=== PATIENT | female | born 1985 | race Caucasian/White ===

== ENCOUNTER 2017-03-26 12:24 | Observation (INO) | payer OTHER ==
[~2017-03-26] VITALS: Ht 177.8 cm; Wt 127.3 kg
--- NOTE | 2017-03-26 15:03 | DIAGNOSTIC IMAGING REPORT ---
PROCEDURE: CT LOWER EXT W/CONTRAST-RIGHT INDICATION: ABCESS TECHNIQUE: 125 ml Isovue 300 IV and axial scans with coronal and sagittal re-formations through the right thigh. COMPARISON: None. FINDINGS: There is infiltration of the subcutaneous fat lateral to the right hip extending inferiorly to the knee but no evidence of an abscess or fluid collection. Vessels and bones are unremarkable. Normal appendix. Uterus, adnexa and bladder are unremarkable. No pelvic mass or fluid collection. IMPRESSION: 1. Cellulitis lateral to the right hip but no evidence of an abscess 2. Results discussed with Dr. Taylor
--- NOTE | 2017-03-26 16:31 | ED ORDER SUMMARY ---
..... Patient: DENISE VANG OrderSheet [facility] VisitID: [id number] [address] [place] [address] 31y, F Registration Date/Time: 03/26/2017 ORDER SHEET Weight: 127.0 kg (stated) Allergies: Sulfa Antibiotics GENERAL ORDERS: - (CT with contrast, bilateral lower extremity abscesses to the thighs) (13:03/26/2017 Vero Myers) (Cancelled: Wrong Order13:27 oerner) CBC w Diff Urgent (13:03/26/2017 Vero Myers) (Ack 13:28 LAURAoehemalathaner) (13:31 LWhalen R.N.) CMP Urgent (13:03/26/2017 Vero Myers) (Ack 13:28 LAURAoerner) (13:31 LWhalen R.N.) Lactate, Serum Urgent (13:03/26/2017 Vero Myers) (Ack 13:28 LAURAoerner) (13:31 LWhalen R.N.) Urine Drug Screen Urgent (13:24 03/26/2017 Vero Myers) (Ack 13:28 LAURAoerner) (13:46 LWhalen R.N.) Urine Urgent (13:03/26/2017 Vero Myers) (Ack 13:28 LAURAoeleonila) (13:46 LWhalen R.N.) Pulse oximeter (13:03/26/2017 Vero Myers) (13:31 LWhalen R.N.) CT Lower Extremity With Contrast - Left Urgent (13:03/26/2017 LAURAoerleonarda verbal order read back to Vero Myers) (Ack 13:28 LAURAoehemalathaner) (13:31 LWhalen R.N.) CT Lower Extremity With Contrast - Right Urgent (13:03/26/2017 LAURAoerleonarda verbal order read back to Vero Myers) (Ack 13:28 LAURAoehemalathaner) (13:31 LWhaldeng R.N.) POC Glucose (17:26 03/26/2017 Vero Myers) (17:34 Juan Pablo R.N.) Blood Culture (Yes) (N/A) Urgent (19:20 03/26/2017 Vero Myers) (Ack 19:29 AMcQuoid ER Tech1) (19:31 Chalo R.N.) Culture, Wound Surface (Leg) (purulent) Urgent (19:22 03/26/2017 Vero Myers) (Ack 19:29 AMcQuoid ER Tech1) (19:38 Chalo R.N.) TSH Urgent (19:03/26/2017 Vero Myers) (Ack 19:29 AMcQuoid ER Tech1) (19:31 Chalo R.N.) MEDICATION ORDERS: Doxycycline Hyclate PO 100 mg (NOW) (16:27 03/26/2017 Vero Myers) (16:31 LWhaldeng R.N.) Ativan IM 2 mg (HIGH ALERT MEDICATION, NOW) (17:26 03/26/2017 Vero Myers) (17:34 Juan Pablo R.N.) Ativan IM 2 mg (HIGH ALERT MEDICATION, NOW) (17:42 03/26/2017 Vero Myers) (17:49 Juan Pablo R.N.) IV FLUIDS: IV NS : initial bolus 1000 mL (1000 mL/hr), then none - for X1 (NOW) (13:22 03/26/2017 Vero Myers) (13:46 LWhaldeng R.N.) Morphine IV 8 mg (HIGH ALERT MEDICATION, NOW) (13:23 03/26/2017 Vero Myers) (13:47 LWhalen R.N.) Morphine IV 8 mg (HIGH ALERT MEDICATION, NOW) (16:26 03/26/2017 Vero Myers) (16:31 LWhaldeng R.N.) IV NS : initial bolus 1000 mL (1000 mL/hr), then none - for X1 (NOW) (17:26 03/26/2017 Vero Myers) (Ack 18:21 LWhalen R.N.) (18:38 LWhalen R.N.) Dilaudid IV 1 mg (HIGH ALERT MEDICATION, NOW) (18:18 03/26/2017 Vero Myers) (Ack 18:21 LWhalen R.N.) (18:37 LWhalen R.N.) Vancomycin IV 1.5 gm/500 mL (NOW) (19:22 03/26/2017 Vero Myers) (Ack 19:32 Chalo R.N.) (20:42 Chalo R.N.) ORDER SHEET NOTES: [Electronically signed by Cammie Lombardi R.N. (22:57 03/26/2017)] [Electronically signed by Ramon Taylor Dr. (13:05 03/27/2017)] [Electronically locked/signed by Cammie Lombardi R.N. (22:57 03/26/2017)]
--- NOTE | 2017-03-26 16:31 | ED CLINICAL REPORT ---
Clinical Report - Physicians/Mid Levels [facility] [address] [place] [address] 03/26/2017 12:26 Patient: DENISE VANG Time Seen: 1319. Arrived- By private vehicle. Historian- patient. HISTORY OF PRESENT ILLNESS Chief Complaint: LESION. This started past month and is still present and worsening. It was gradual in onset and has been constant but is not gone now. It is described as painful. It has been located on the right lower extremity and left lower extremity. A possible cause has been identified (drug injection). (reports she does heroin. States that she would like to stop doing heroin.). Similar symptoms previously: Many times. Recent medical care: Not recently seen/assessed. REVIEW OF SYSTEMS No fever, chills or difficulty breathing. All systems otherwise negative, except as recorded above. PAST HISTORY See nurses notes. Tetanus immunization status is up-to-date. SOCIAL HISTORY Never smoker. History of drug use. No alcohol use. No recent travel. Is a local resident. PHYSICAL EXAM Appearance: Alert. Oriented X3. No acute distress. (cooperative, pleasant, polite). Eyes: Pupils equal, round and reactive to light. Conjunctivae and eyelids normal. ENT: Ears normal. Nose normal. Pharynx normal. CVS: Normal heart rate and rhythm. Heart sounds normal. Respiratory: No respiratory distress. Breath sounds normal. Chest nontender. Abdomen: Nontender. No organomegaly. Skin: (chronic lesions in multiple stages of healing noted to the lateral aspect of the thighs bilaterally. lateral aspect of the thighs or indurated however there is no area of fluctuance noted on examination. Overlying area of erythema noted bilaterally. No signs of lymphangitis. No crepitus. No active drainage. No foreign bodies. Compartments are soft. Patient is neurovascular intact distally.). Extremities: Normal external inspection. Extremities nontender. Neuro: Oriented X 3. No motor deficit. No sensory deficit. LABS, X-RAYS, AND EKG Note - Special Studies: PROCEDURE: CT LOWER EXT W/CONTRAST-LEFT INDICATION: ABCESS TECHNIQUE: 125 ml IV with axial scans through the left thigh with coronal and sagittal re-formations. COMPARISON: None. FINDINGS: There is infiltration of the subcutaneous fat lateral to the left hip extending to the knee. There is a 3 x 0.9 cm subcutaneous low density area anterolateral to the proximal (series 3, image 54), without well defined morillo, which could represent a phlegmon. Bones and muscles are unremarkable. Normal appendix, uterus, adnexa and bladder. No pelvic mass or fluid collection. IMPRESSION: 1. Cellulitis of the subcutaneous tissues lateral to the left hip 2. 3 x 0.9 cm subcutaneous phlegmon in the upper left thigh anterolaterally PROCEDURE: CT LOWER EXT W/CONTRAST-RIGHT INDICATION: ABCESS TECHNIQUE: 125 ml Isovue 300 IV and axial scans with coronal and sagittal re-formations through the right thigh. COMPARISON: None. FINDINGS: There is infiltration of the subcutaneous fat lateral to the right hip extending inferiorly to the knee but no evidence of an abscess or fluid collection. Vessels and bones are unremarkable. Normal appendix. Uterus, adnexa and bladder are unremarkable. No pelvic mass or fluid collection. IMPRESSION: 1. Cellulitis lateral to the right hip but no evidence of an abscess. Laboratory Tests: Urine: (SUKI: 03/26/2017 13:50) ( [facility] 03/26/2017 14:16) Final results Test Result Flag Units (Reference) URINE NEGATIVE CBC w Diff: (SUKI: 03/26/2017 13:15) ( [facility] 03/26/2017 14:19) Final results Test Result Flag Units (Reference) WHITE BLOOD COUNT 7.1 K/uL (4.5-11.5) RED BLOOD COUNT 4.23 M/uL (4.00-5.20) HEMOGLOBIN 9.1 L gm/dL (12.0-16.0) HEMATOCRIT 28.4 L % (36.0-46.0) MEAN CELL VOLUME 67 L fL (80-100) MEAN CORPUSCULAR HGB 22 L pg (26-34) MEAN CORPUSCULAR HGB CONC 32 g/dL (31-37) RED CELL DISTRIBUTION WIDTH 16.8 H % (11.6-14.8) PLATELET COUNT 426 H K/uL (150-400) NEUTROPHIL % 55.8 % (50-75) LYMPH % 31.4 % (25-40) MONO % 8.3 % (3-14) EOSINOPHIL % 4.2 H % (0-4) BASOPHIL % 0.3 % (0-2) RBC MORPHOLOGY 1+ STOMATOCYTOSIS~~2+ MICROCYTOSIS~~2+ ANISOCYTOSIS~~3+ HYPOCHROMASIA Urine Drug Screen: (SUKI: 03/26/2017 13:50) ( [facility] 03/26/2017 14:34) Final results Test Result Flag Units (Reference) AMPHETAMINE/METHAMPHETAMINE POSITIVE H (NEGATIVE) BARBITURATE NEGATIVE (NEGATIVE) BENZODIAZEPINE POSITIVE H (NEGATIVE) CANNABINOID NEGATIVE (NEGATIVE) COCAINE NEGATIVE (NEGATIVE) ECSTASY POSITIVE H (NEGATIVE) METHADONE NEGATIVE (NEGATIVE) OPIATE POSITIVE H (NEGATIVE) The urine drug screen is a qualitative screening test fordrug overdose and abuse. All screen results should beconsidered as presumptive.Drugs screened for are as follows:BenzodiazepinesCocaineAmphetamines/MetamphetaminesTHC (Tetrahydrocannabinol)OpiatesBarbituratesEcstasyMethadonePositive results are unconfirmed. For confirmation, notifythe lab for the specimen to be sent to the reference lab.All confirmations must be performed by a differentmethodology.The ingestion of natural herbal and plant productscontaining Ephedra/Ephedra metabolites can produce in urineone or more substances capable of cross reacting withamphetamine/methamphetamine immunoassays. These testsprovide a preliminary result only. A more specificalternative chemical method must be used to obtain aconfirmed analytical result. Lactate, Serum: (SUKI: 03/26/2017 13:15) ( [facility] 03/26/2017 14:12) Final results Test Result Flag Units (Reference) LACTIC ACID 0.8 mmol/L (0.4-2.0) CMP: (SUKI: 03/26/2017 13:15) ( [facility] 03/26/2017 13:45) Final results Test Result Flag Units (Reference) GLUCOSE 108 mg/dL (70-110) BUN 11 mg/dL (7-18) CREATININE 0.7 mg/dL (0.6-1.3) Estimated GFR >60 mL/min Estimated GFR- >60 mL/min Note: Persistent reduction over 3 months in eGFR<60 mL/min/1.73 m2 defines CKD. Patients with eGFR values>=60 mL/min/1.73 m2 may also have CKD if evidence ofpersistent proteinuria. Additional information may be foundat www.kidney.org. SODIUM 138 mmol/L (136-145) POTASSIUM 3.8 mmol/L (3.5-5.1) CHLORIDE 101 mmol/L (98-107) CARBON DIOXIDE 28 mmol/L (21-32) CALCIUM 8.4 L mg/dL (8.5-10.1) TOTAL PROTEIN 8.6 H g/dL (6.4-8.2) ALBUMIN 2.9 L g/dL (3.3-5.0) BILIRUBIN, TOTAL 0.2 mg/dL (0.0-1.0) ALKALINE PHOSPHATASE 101 U/L (46-116) AST (SGOT) 19 U/L (15-37) ALT (SGPT) 18 U/L (12-78) . PROGRESS AND PROCEDURES Course of Care: the patient is a pleasant 31-year-old female with past medical history significant for IV drug abuse presenting for evaluation of infection to the lateral aspect of the thighs. There is a large area of induration noted bilaterally to the patient's thighs. No identifiable area of fluctuance noted. Because the large area of induration and area of involvement, would be concerned for large subcutaneous abscess. No crepitus. No signs of gangrene. Patient will be evaluated with a CT scan of the lower extremities with contrast. Patient is agreeable to the treatment plan. No evidence of sepsis at this time. Pain medication has been ordered. Did have a discussion with the patient and her pain control and the negative effects of heroin on the Pain receptors in the brain. the patient's work up was a markable for the findings above. White count is noted to be 7.1. Initially, the patient's CT scan did not show any signs of fluid collection. Because of this, patient did not need an incision and drainage as there was no area of fluid collection noted. Patient was readied for discharge. Patient was feeling better. Antibiotics have been ordered. First dose was provided here in the emergency department. Just prior to discussion with the patient in regards to discharging from the emergency department, was notified by radiology of a small area of phlegmon noted on the lateral aspect of the patient's left thigh. At the same time, shortly after. the patient was able to express purulent material from the lateral aspect where the phlegmon was located per radiology. Because of the patient's spontaneous drainage and superficial location of the abscess/fluid collection, did not feel tfurther assistance with drainage needed. Was discussing with the patient her outpatient management with antibiotics and close follow-up. During this time, the patient states that she feels comfortable with home managment however during this time, patient had a witnessed seizure by myself and the nurse. Seizure lasted approximately 30 seconds. During this time, an Accu-Chek was obtained as well as a dose of Ativan. Accu-Chek was noted to be normal. The patient's IV had Already removed and was needed to be given intramuscular. The patient was noted to be difficult stick presumably from the IV drug abuse. Ultrasound guidance was needed by the nurses to obtain IV access. Patient continued to be altered and another dose of Ativan was provided as patient would not cooperate with the IV placement. Because the patient's seizure as well as large area of cellulitis noted to the bilateral thighs, felt the seizure would make outpatient treatment much more difficult. Because of this, recommended patient be admitted to the hospital for further monitoring and management as well as IV antibiotic treatment. Patient was reevaluated and found to have significant improvement. Patient reports feeling better from the time of her seizure. Patient is now alert and oriented after approximately 15 minutes. No further seizure activity noted. Patient is noted to have a normal CT scan of her head for seizure-like activity in 2013. Would also be concerned for substance abuse induced seizures with the positive UDS patient presented with today. Patient continues to be afebrile. Had discussion with the hospitalist who recommended several laboratory studies including a CT scan of the head. I had placed these orders in the patient'schart and had these obtained. Unfortunately, the CT scan of the head was not placed in the patient's orders. I had called back at the end of my shift. Verbally put the CT scan ordering the patient's orders however the hospitalist had a libertarian placed these orders. Appreciate the hospitalist help with the care of the patient. when the patient was more alert and oriented, had discussion with the patient in regards to the reason for seizures. The patient states that she was placed on Keppra at some point in time however was told that her seizures are because ofthe clonazepam that she was on. Patient states that she was told to continue to taking the clonazepam and if she continues to take the clonazepam, while no further seizures. Patient has been doing this as instructed however recently started to try to become clean and sober and stop the clonazepam. Patient is likely having a seizure because of benzodiazepine withdrawal. The Ativan that was provided earlier would help with the withdrawal symptoms. No known family history of seizure disorder per the patient's mother and the patient. The patient was admitted without further delay. Antibiotics and blood cultures have been ordered. Discussed with the patient her workup here in the emergency department including diagnosis, plan of care. All questions have been answered. The patient is agreeable to the treatment plan. Critical care performed (70 minutes). Time is exclusive of separately billable procedures. Time includes: direct patient care, patient reassessment, coordination of patient care, interpretation of data (laboratory data and chest xrays), review of patient's medical records, medical consultation and documentation of patient care. Disposition: Observation in Acute Care. CLINICAL IMPRESSION 03/26/2017 12:32 BP: 122/62. HR: 101. RR: 18. O2 saturation: 100%. Temp: 98.4 F. Blood pressure normal. Oxygen saturation normal. Cellulitis of the right thigh and left thigh. benzodiazepine withdrawal seizure polysubstance abuse. INSTRUCTIONS Warnings: SEDATIVE MEDICATION: You were given sedative medication during your visit. Do not drive or operate dangerous machinery. CONTROLLED SUBSTANCE WARNINGS. GENERAL WARNINGS: Return or contact your physician immediately if your condition worsens or changes unexpectedly, if not improving as expected, or if other problems arise. Specifically return if pain, vomiting, bleeding, breathing difficulty or fever. Your Current Medications: CONTINUE TAKING THE FOLLOWING MEDICATIONS: ChlorproMAZINE HCl Injection. Gabapentin Oral. HydrOXYzine HCl Oral. Sertraline HCl Oral. Prescription Medications: Doxycycline 100 mg: Take 1 capsule orally every 12 hours for 10 days. No refill. Morphine sulfate IR 15 mg tab. Take one tab PO. PRN pain every 6 hours as needed. Disp 5 tabs. No refills. Substitution allowed. Follow-up: Return to the emergency department as needed. Follow up with your doctor in three days. Reason for referral: recheck today's concerns. Summary of care provided to patient via paper. Screening today revealed the patient's blood pressure to be in the normal range. The patient should follow up with a primary care provider for blood pressure management. Understanding of the discharge instructions verbalized by patient. (Electronically signed by Ramon Taylor Dr. 03/27/2017 13:05)
--- NOTE | 2017-03-26 16:31 | ED NURSING NOTES ---
Clinical Report - Nurses [facility] [address] [place] [address] 03/26/2017 12:26 Patient: DENISE VANG TRIAGE Triage time 12:Mar 26 2017. Acuity: LEVEL 3. Chief Complaint: BOIL. ONIEL COMA SCORE: [place] Coma Scale: 15- eyes open spontaneously (4); best verbal response- oriented x 4 (5); best motor response- obeys commands (6). --12:43 Spencer Gonzalez R.N. 12:32 03/26/17. BP: 122/62. HR: 101. RR: 18. O2 saturation: 100%. Temp: 98.4 F. Pain level now 8/10. --12:43 Spencer Gonzalez R.N. Weight: 127 kg stated. Height/Length: 70 inches Per Patient. BMI: 40.2. --12:42 Spencer Gonzalez R.N. Medications ChlorproMAZINE HCl Injection. --12:36 Spencer Gonzalez R.N. Sertraline HCl Oral. --12:37 Spencer Gonzalez R.N. HydrOXYzine HCl Oral. --12:37 Spencer Gonzalez R.N. Gabapentin Oral. --12:38 Spencer Gonzalez R.N. Allergies Sulfa Antibiotics. --12:38 Spencer Gonzalez R.N. History Arrived by private vehicle. Historian: patient. Reported as (bilat thighs). Onset. (one month). It is described as itchy, burning and painful. ( Used heroin and shoots up and noticed abscess on thighs and now has leaking from site states black chunks coming out.). Treatment ENVIRONMENTAL SERVICES SUPERVISOR: None. PAST MEDICAL HX: Immunizations: up-to-date. Last normal menstrual period- years. SOCIAL HX: Light tobacco smoker- less than 1/2 a pack per day. History of heavy IV drug use: heroin, methamphetamines, marijuana, benzodiazepines. Recently used drugs just prior to arrival. No alcohol use. SELF HARM ASSESSMENT: A self harm assessment was performed. The patient answered "yes" to the question "Have you recently felt down, depressed, or hopeless?" and "no" to the question "Do you have thoughts of harming or killing yourself?". FALL RISK ASSESSMENT: Fall risk assessment completed. No fall risk identified. NUTRITIONAL RISK ASSESSMENT: The nutritional risk assessment revealed no deficiencies. FUNCTIONAL ASSESSMENT: Functional assessment: no impairments noted. LEARNING NEEDS ASSESSMENT: The learning needs assessment revealed no barriers. ABUSE ASSESSMENT: Abuse assessment: (yes) The patient was asked "Do you feel safe in your home?". SKIN INTEGRITY ASSESSMENT: Skin integrity risk assessment completed. No skin integrity risk identified. --12:43 Spencer Gonzalez R.N. PROBLEMS: Substance Abuse. UTI - Urinary Tract Infection. Anemia. Abscess. Lifestyle / Substance Problems. LNMP - Last Normal Menstrual Period. --12:39 Spencer Gonzalez R.N. ADDITIONAL SURGERIES: Abcess drainage . --12:39 Spencer Gonzalez R.N. Interventions ID band on patient. --12:43 Spencer Gonzalez R.N. PHYSICAL ASSESSMENT Ambulatory to room. ( Many old and new injections spots with many abscesses and skin breakdown.). GENERAL / NEURO / PSYCH: Alert. Appears in pain, anxious and in distress. Oriented X 4. HEENT: Pupils equal, round and reactive to light. Mucous membranes are pink. RESPIRATORY: Respirations not labored. Breath sounds within normal limits. CVS: Capillary refill less than 2 seconds. Pulses within normal limits. GI / : Abdomen nontender. ( Having watery diarrhea with foul odor.). SKIN: Skin lesion present. Drainage. Skin tenderness present. Swelling present. Increased warmth present. Erythema present. --12:45 Spencer Gonzalez R.N. NURSING PROGRESS NOTES The initial plan of care for this patient includes an assessment with efforts to address patient positioning, appropriate ambient lighting and comfortable environmental temperature; impairment of the musculoskeletal and integumentary system. Pulse oximeter and NIBP monitor placed on patient. Patient gowned. Head of bed elevated 45 degrees. Reassurance given. Call light placed in reach. Side rails up x 1. Bed placed in lowest position. Brakes of bed on. --12:45 Spencer Gonzalez R.N. 13:20 03/26/2017 Site #1 started via IV in the right antecubital space with an 20g angiocath; three attempts. Blood drawn: rainbow set. Saline lock flushed with 10 mL saline (ultrasound-guided placement). --13:20 Nishi Stewart R.N. 13:46 03/26/2017 Started bag #1 1000 mL IV Fluids IV NS (Saline); at 1000 mL/hr over 1 hour(s) via site #1 via IV pump. Allergies verified and confirmed 5 rights. IV patency established. IV site checked: no pain, redness, or swelling. IV flushed thoroughly pre- and post-medication administration. --13:46 Spencer Gonzalez R.N. 13:47 03/26/2017 Morphine IVP 8 mg given over 4 minute(s) via site #1. Allergies verified, confirmed 5 rights and sedative warning given to the patient. IV patency established. IV site checked: no pain, redness, or swelling. IV flushed thoroughly pre- and post-medication administration. --13:47 Spencer Gonzalez R.N. Patient transported to CT by stretcher. Patient returned from CT by stretcher with tech. --14:47 Nanda Marr R.N. 16:31 03/26/2017 Morphine IVP 8 mg given over 4 minute(s) via site #1. Allergies verified, confirmed 5 rights and sedative warning given to the patient. IV patency established. IV site checked: no pain, redness, or swelling. IV flushed thoroughly pre- and post-medication administration. --16:31 Spencer Gonzalez R.N. 16:31 03/26/2017 DOXYCYCLINE HYCLATE PO Tablets 100 mg given. Allergies verified and confirmed 5 rights. --16:31 Spencer Gonzalez R.N. 17:29 03/26/2017 Ativan (LORazepam) IM 2 mg given. Given in the left gluteus jass. --17:34 Nanda Marr R.N. 17:44 03/26/2017 Ativan (LORazepam) IM 2 mg given. Given in the right gluteus jass. --17:49 Nanda Marr R.N. 18:26 03/26/2017 Site #2 started via IV in the right hand with an 24g angiocath, with aseptic technique and good blood return; four attempts. Saline lock flushed with 10 mL saline. --18:37 Spencer Gonzalez R.N. 18:37 03/26/2017 Dilaudid (HYDROmorphone HCl PF) IVP 1 mg given over 4 minute(s) via site #2. Allergies verified, confirmed 5 rights and sedative warning given to the patient and patient's family. IV patency established. IV site checked: no pain, redness, or swelling. IV flushed thoroughly pre- and post-medication administration. --18:37 Spencer Gonzalez R.N. 18:38 03/26/2017 Started bag #1 1000 mL IV Fluids IV NS (Saline); at 250 mL/hr over 4 hour(s) via site #2 via dial-a-flow. Allergies verified and confirmed 5 rights. IV patency established. IV site checked: no pain, redness, or swelling. IV flushed thoroughly pre- and post-medication administration. --18:38 Spencer Gonzalez R.N. 18:30 03/26/17. BP: 118/60. HR: 95. RR: 20. O2 saturation: 99%. 18:00 03/26/17. BP: 115/60. HR: 91. RR: 18. O2 saturation: 100%. 17:45 03/26/17. BP: 121/76. HR: 99. RR: 18. O2 saturation: 100% on nasal cannula at 4 liters/minute. 17:30 03/26/17. BP: 118/70. HR: 83. RR: 18. O2 saturation: 100%. 16:30 03/26/17. BP: 120/60. HR: 95. RR: 18. O2 saturation: 100%. 15:30 03/26/17. BP: 100/62. HR: 97. RR: 18. O2 saturation: 97%. --18:57 Spencer Gonzalez R.N. ( When discharging patient MD was in the room for observing the drainage from wounds and patient began to have a seizure. Patient violently became tonic with blood tinged mucus coming from mouth. Extra nurses called for help and patient placed on the monitor along with oxygen and suction of her airway. Several attempts to obtain an IV with final success in the right thumb. Right anicub IV site red and painful +blood return with withdrawal. Pads for safety placed on bed.). --19:08 Spencer Gonzalez R.N. ( Report given to Cammie PEREZ.). --19:08 Spencer Gonzalez R.N. 19:59 03/26/17. BP: 133/60 (regular adult cuff) taken on the left arm. HR: 90. RR: 16. O2 saturation: 100%. Temp: 97.9 F (oral). Pain level now: 05/11. Additional comments: DE PAZ. --20:01 Cammie Lombardi R.N. late entry - 19:30 03/26/17. ( Patients mother at bedside. Patient given apple juice and another warm blanket). --20:01 Cammie Lombardi R.N. 20:01 03/26/17. --20:01 Cammie Lombardi R.N. ( Writing RN and primary RN attempting to establish IV access for antibiotics). --20:05 Alexandra Peres Overall patient status is the same. GENERAL / NEURO / PSYCH: The patient reports pain. Location identified as the head- DE PAZ 05/11. RESPIRATORY: No respiratory distress. Breath sounds normal. SKIN: Skin is warm. Skin color within normal limits. --20:15 Cammie Lombardi R.N. 20:06 03/26/2017 Site #1 removed. Bandaid applied. --20:16 Cammie Lombardi R.N. Patient transported to [place] by stretcher with tech. (20:29 Mar 26 2017). --20:29 Cammie Lombardi R.N. 20:27 03/26/2017 Site #3 started via IV in the left hand with an 22g angiocath; two attempts. Saline lock flushed with 10 mL saline. --20:32 Indio Servin R.N. Patient returned by stretcher with tech. (20:36 Mar 26 2017). --20:36 Cammie Lombardi R.N. 20:42 03/26/2017 Started 1.5 gm of Vancomycin IVPB in bag #1 500 mL; at 250 mL/hr over 2 hour(s) via site #3 via IV pump. Allergies verified and confirmed 5 rights. IV patency established. IV site checked: no pain, redness, or swelling. IV flushed thoroughly pre- and post-medication administration. --20:42 Cammie Lombardi R.N. 20:42 03/26/17. BP: 130/71 (large adult cuff) taken on the right arm. HR: 90. RR: 16. O2 saturation: 100%. Pain level now: 06/11. --20:43 Cammie Lombardi R.N. 20:49 03/26/17. ( Charge nurse in with patient asking admitting questions.). --20:49 Cammie Lombardi R.N. 22:32 03/26/2017 Vancomycin IVPB Continued: upon transfer at the rate of 250 mg/hr. 450 mL remaining bag #2. IV patency established. IV site checked: no pain, redness, or swelling. IV flushed thoroughly. --22:57 Cammie Lombardi R.N. 22:49 03/26/2017 IV Fluids IV NS Continued: upon discharge at the rate of 250 mL/hr. 500 mL remaining bag #1. IV patency established. IV site checked: no pain, redness, or swelling. IV flushed thoroughly. --22:49 Cammie Lombardi R.N. DISPOSITION / DISCHARGE Departure time: 21:05 Mar 26 2017. Condition at departure: unchanged. Admitted to Acute Care (207). Report was given to a nurse via a phone call. Report included patient's care, treatment, medications, reviewed medication reconcilliation, and condition (including any recent changes or anticipated changes). All questions were answered. Report was acknowledged and care was transferred. (CHRIS Conley). Bed obtained and ready (207). Patient's personal items include: shoes and purse. --21:05 Cammie Lombardi R.N. 21:01 03/26/17. BP: 130/71 (large adult cuff) taken on the right arm. HR: 97. RR: 16. O2 saturation: 99% on nasal cannula. Temp: 98.2 F (oral). Pain level now: 06/11. Additional comments: Patient complains of DE PAZ and back pain but very sleepy, will wake up with verbal but falls right back to sleep. --21:05 Cammie Lombardi R.N. Locked/Released at 03/26/2017 22:57 by Cammie Lombardi R.N.
--- NOTE | 2017-03-26 20:44 | DIAGNOSTIC IMAGING REPORT ---
PROCEDURE: CT HEAD WITHOUT CONTRAST INDICATION: Seizure TECHNIQUE: Noncontrast axial images with sagittal and coronal reformations. COMPARISON: Head CT 08/31/2014. FINDINGS: Sulci, ventricular system, and brain parenchyma are normal. No evidence of acute intracranial process. Visualized mastoids and sinuses are clear. No significant interval change. IMPRESSION: 1. Negative non-enhanced head CT. 2. Findings discussed with Dr. Fall at 08:43 p.m., [place] Standard Time
[2017-03-26 21:44] VITALS: BP 127/78
--- NOTE | 2017-03-26 21:45 | NUR ---
ADMITTED WITH CELLILITIS ON THE RIGHT THIGH. GIVEN DOSES OF MORPHINE IN ED FOR PAIN BUT HAD A SEIZURE JUST BEFORE BEING RELEASED. ARRIVED ON THE EDGE ASLEEP AND DIFFICULT TO ROUSE. STARTED ON IV FLUIDS AND IV ANTIBIOTIC. WAS ABLE TO USE THE COMMODE TO PASS URINE BUT WENT BACK TO SLEEP IMMEDIATELY.
[2017-03-26 23:04] VITALS: BP 122/76
--- NOTE | 2017-03-26 23:13 | HISTORY AND PHYSICAL ---
ADMITTED: 03/26/2017 CHIEF COMPLAINT: 1. Red legs HISTORY OF PRESENT ILLNESS: This is a 31-year-old female with the history of IV drug use, presenting to the emergency department with complaints of sore red legs. I am unable to interview this patient because she received Dilaudid and Ativan in the emergency department and is extremely somnolent. Per the emergency department report, patient had been having progressive redness and soreness in her thighs, which brought her to the emergency department. The emergency department diagnosed her with cellulitis and after giving her 60 mg of IV morphine and doc doing a CT scan of her legs ruling out abscess, gave her doxycycline and was going to discharge her to home. After removing the IV, but before she left the emergency department, the patient had a seizure. Per the emergency department physician, patient states that she intermittently has seizures whenever she tries to stop her benzodiazepines. She states that she has tried to wean herself off the benzodiazepines over the last week or 2. Despite this, she had her urine toxicology screen tested positive for benzodiazepines and this was before the emergency department had given her any medications. After the seizure, the emergency department gave her 4 mg of lorazepam. She must have complained that she was in pain and then she received another 1 mg of Dilaudid. MEDICAL/SURGICAL HISTORY: Past medical history: I am unable to interview the patient due to somnolence. According to a consult done by Dr. Lopez in 2013, patient is a heroin IV drug user, has been through rehab previously, and has high blood pressure. MEDICATIONS: From the emergency department documentation, she is on: 1. Chlorpromazine. 2. Sertraline. 3. Hydroxyzine. 4. Gabapentin. 5. I did get the patient to wake up enough to state that she is on ibuprofen. 6. Ativan. The patient states she goes to the [facility] in [place]. ALLERGIES: 1. SULFA. SOCIAL HISTORY: From the consult note that Dr. Lopez dictated in 2013, patient is a G1, P1, with a 10-year-old daughter who lives with grandma. By that report at that time, she denied any alcohol use, but she does have a smoking history. FAMILY HISTORY: Unable to obtain. REVIEW OF SYSTEMS: Unable to obtain due to somnolence. PHYSICAL EXAMINATION: VITAL SIGNS: Blood pressure is 127/78, pulse is 89, respiratory rate of 18, O2 saturation is 100% on room air, T-max is 98.4 degrees Fahrenheit. GENERAL: This is a somnolent female lying in bed in no apparent distress. HEENT: Head is atraumatic, normocephalic. Pupils are equal, round, and reactive to light with accommodation bilaterally. Oropharynx is nonerythematous without exudates and moist. Trachea is midline. NECK: There is no JVD. HEART: S1, S2, regular rate and rhythm. No S3, S4, murmurs, gallops, or rubs. LUNGS: Clear to auscultation bilaterally. ABDOMEN: Soft, nontender, nondistended without hepatosplenomegaly or masses. Bowel sounds are active. EXTREMITIES: The patient has multiple sores on her right upper thigh with a very large area of erythema and pus coming from the sores. The sores had been cultured in the emergency department. LAB/IMAGING: Labs: Sodium is 138, potassium 3.8, chloride is 101, bicarb 28, BUN of 11, creatinine of 0.7, glucose of 108. White blood cell count is 7.1, hemoglobin of 9.1, hematocrit of 28.4, platelets of 426,000. Urine test is negative. U tox tested positive for methamphetamines, benzodiazepines, ecstasy and opiates. Calcium is 8.4, total protein 8.6. Lactic acid 0.8. Albumin 2.9, total bilirubin 0.2, alk phos of 101, AST of 19, ALT of 18. IMPRESSION: 1. This is a 31-year-old female with the history of IV drug use, presenting to the emergency department with complaints of soreness and redness on her upper thighs, consistent with cellulitis, who had a seizure in the emergency department. PLAN: 1. The patient will be monitored overnight for any further seizure activity. I have recommended a CT of the head and an EKG. I have also added a CK, cortisol, LDH, TSH, prolactin level, magnesium, urinalysis, ETOH. We will monitor closely for medication withdrawals; however, considering the patient received morphine, Dilaudid and Ativan in the emergency department, it is unlikely that patient would withdraw this evening. 2. Infectious Disease: The patient has cellulitis of her upper thighs. We will do vancomycin. Blood cultures and wound cultures are pending. 3. Prophylaxis. The patient is eating and she will be on sequential compression devices for deep venous thrombosis prophylaxis. 4. Code status: By default is FULL CODE since I cannot communicate with the patient today due to the somnolence.
[2017-03-27 02:33] VITALS: BP 123/75
[2017-03-27 06:55] VITALS: BP 127/81
--- NOTE | 2017-03-27 08:07 | NUR ---
S/O: Vancomycin dosing per pharmacy for cellulitis Ht: 70 in Wt: 280 lbs SCr: 0.6 Given loading dose of 2 GM in ED. P: 1250 MG Q8H with goal of 12-13 for trough which will be drawn Wednesday 03/28 0730.
--- NOTE | 2017-03-27 09:52 | NUR ---
In to see patient, with report of cellulitis and open areas to bilat upper thighs. Please see photographic wound sheet for wound photos and characteristics. All open areas cleansed with NS, Mepilx Ag applied to both areas, 3x3 border foam to the left larger open injection site, and Mepilex 4x4 foam to cover the 3 other open injections sites on the right upper thigh. There are also multiple small, superficial open areas to bilat LE, these were cleansed and Bacitracin follwed by adhesive bandage applied for now. Pt was given education on dressing changes upon discharge, instructions given both verbally and with written form, with sheet for discharge with dressing change instructions. Mepilex dressings to be changed in 7 days, unless there is more than 70% drainage noted on outside of dressing, this area was marked for pt to easily view. Pt also instructed will need follow up at primary physician, she states that she wants to go to the [facility] next door. 2 dressings left with patient with instructions for after discharge, all questions answered will continue to monitor.
[2017-03-27 11:00] VITALS: BP 157/37
--- NOTE | 2017-03-27 13:06 | ED MAR SUMMARY ---
..... Medication Administration Record [facility] [address] [place] [address] Patient: DENISE VANG Visit ID: [id number] 31y, F Weight: 127.0 kg Height/Length: 70 in BMI: 40.2 ALLERGIES: Sulfa Antibiotics Start 13:46 03/26/2017 Spencer Gonzalez R.N. Medication Administered: IV NS (SALINE), Dose: IV Fluids over 1 hour(s), Rate: 1000 mL/hr, Dispensed: 1000 mL bag, Site: #1 right AC. Medication Ordered: IV NS : initial bolus 1000 mL (1000 mL/hr), then none - for X1 (NOW). Given 13:47 03/26/2017 Spencer Gonzalez R.N. Medication Administered: MORPHINE [IVP], Dose: 8 mg IVP over 4 minute(s), Site: #1 right AC. Medication Ordered: Morphine IV 8 mg (HIGH ALERT MEDICATION, NOW). Given 16:31 03/26/2017 Spencer Gonzalez R.N. Medication Administered: MORPHINE [IVP], Dose: 8 mg IVP over 4 minute(s), Site: #1 right AC. Medication Ordered: Morphine IV 8 mg (HIGH ALERT MEDICATION, NOW). Given 16:03/26/2017 Spencer Gonzalez R.N. Medication Administered: DOXYCYCLINE HYCLATE [PO], Dose: 100 mg Tablets PO. Medication Ordered: Doxycycline Hyclate PO 100 mg (NOW). Given 17:29 03/26/2017 Nanda Marr R.N. Medication Administered: ATIVAN [IM] (LORAZEPAM), Dose: 2 mg IM. Medication Ordered: Ativan IM 2 mg (HIGH ALERT MEDICATION, NOW). Given 17:44 03/26/2017 Nanda Marr R.N. Medication Administered: ATIVAN [IM] (LORAZEPAM), Dose: 2 mg IM. Medication Ordered: Ativan IM 2 mg (HIGH ALERT MEDICATION, NOW). Given 18:37 03/26/2017 Spencer Gonzalez R.N. Medication Administered: DILAUDID [IVP] (HYDROMORPHONE HCL PF), Dose: 1 mg IVP over 4 minute(s), Site: #2 right hand. Medication Ordered: Dilaudid IV 1 mg (HIGH ALERT MEDICATION, NOW). Start 18:38 03/26/2017 Spencer Gonzalez RKei, Continued Upon Discharge 22:49 03/26/2017 Cammie Lombardi R.N. Medication Administered: IV NS (SALINE), Dose: IV Fluids over 4 hour(s), Rate: 250 mL/hr, Dispensed: 1000 mL bag, Site: #2 right hand. Medication Ordered: IV NS : initial bolus 1000 mL (1000 mL/hr), then none - for X1 (NOW). Start 20:42 03/26/2017 Cammie Lombardi R.N., Continued Upon Transfer 22:32 03/26/2017 Cammie Lombardi R.N. Medication Administered: VANCOMYCIN [IVPB], Dose: 1.5 gm IVPB over 2 hour(s), Rate: 250 mL/hr, Dispensed: 500 mL bag, Site: #3 left hand. Medication Ordered: Vancomycin IV 1.5 gm/500 mL (NOW).
--- NOTE | 2017-03-27 13:06 | ED MAR SUMMARY ---
..... Medication Administration Record [facility] [address] [place] [address] Patient: DENISE VANG Visit ID: [id number] 31y, F Weight: 127.0 kg Height/Length: 70 in BMI: 40.2 ALLERGIES: Sulfa Antibiotics Start 13:46 03/26/2017 Spencer Gonzalez R.N. Medication Administered: IV NS (SALINE), Dose: IV Fluids over 1 hour(s), Rate: 1000 mL/hr, Dispensed: 1000 mL bag, Site: #1 right AC. Medication Ordered: IV NS : initial bolus 1000 mL (1000 mL/hr), then none - for X1 (NOW). Given 13:47 03/26/2017 Spencer Gonzalez R.N. Medication Administered: MORPHINE [IVP], Dose: 8 mg IVP over 4 minute(s), Site: #1 right AC. Medication Ordered: Morphine IV 8 mg (HIGH ALERT MEDICATION, NOW). Given 16:31 03/26/2017 Spencer Gonzalez R.N. Medication Administered: MORPHINE [IVP], Dose: 8 mg IVP over 4 minute(s), Site: #1 right AC. Medication Ordered: Morphine IV 8 mg (HIGH ALERT MEDICATION, NOW). Given 16:03/26/2017 Spencer Gonzalez R.N. Medication Administered: DOXYCYCLINE HYCLATE [PO], Dose: 100 mg Tablets PO. Medication Ordered: Doxycycline Hyclate PO 100 mg (NOW). Given 17:29 03/26/2017 Nanda Marr R.N. Medication Administered: ATIVAN [IM] (LORAZEPAM), Dose: 2 mg IM. Medication Ordered: Ativan IM 2 mg (HIGH ALERT MEDICATION, NOW). Given 17:44 03/26/2017 Nanda Marr R.N. Medication Administered: ATIVAN [IM] (LORAZEPAM), Dose: 2 mg IM. Medication Ordered: Ativan IM 2 mg (HIGH ALERT MEDICATION, NOW). Given 18:37 03/26/2017 Spencer Gonzalez R.N. Medication Administered: DILAUDID [IVP] (HYDROMORPHONE HCL PF), Dose: 1 mg IVP over 4 minute(s), Site: #2 right hand. Medication Ordered: Dilaudid IV 1 mg (HIGH ALERT MEDICATION, NOW). Start 18:38 03/26/2017 Spencer Gonzalez RKei, Continued Upon Discharge 22:49 03/26/2017 Cammie Lombardi R.N. Medication Administered: IV NS (SALINE), Dose: IV Fluids over 4 hour(s), Rate: 250 mL/hr, Dispensed: 1000 mL bag, Site: #2 right hand. Medication Ordered: IV NS : initial bolus 1000 mL (1000 mL/hr), then none - for X1 (NOW). Start 20:42 03/26/2017 Cammie Lombardi R.N., Continued Upon Transfer 22:32 03/26/2017 Cammie Lombardi R.N. Medication Administered: VANCOMYCIN [IVPB], Dose: 1.5 gm IVPB over 2 hour(s), Rate: 250 mL/hr, Dispensed: 500 mL bag, Site: #3 left hand. Medication Ordered: Vancomycin IV 1.5 gm/500 mL (NOW).
--- NOTE | 2017-03-27 13:06 | ED MED RECONCILIATION SUMMARY ---
Patient: DENISE VANG Medication Reconciliation Report [facility] VisitID: [id number] [address] [place] [address] 31y, F Registration Date/Time: 03/26/2017 Weight: 127.0 kg Height/Length: 70 in. BMI: 40.2 ALLERGIES: Sulfa Antibiotics The patient's Home Medications are listed below: CONTINUE TAKING THE FOLLOWING MEDICATIONS: ChlorproMAZINE HCl Injection Gabapentin Oral HydrOXYzine HCl Oral Sertraline HCl Oral The source(s) of the original Home Medication information: Not obtained. The following Medications were given to the patient in the Emergency Department: IV NS IV Fluids bolus 0, then 1000 mL/hr, administered: 03/26/2017 1:46:00 PM Morphine [IVP] IVP 8 mg, administered: 03/26/2017 1:47:00 PM Morphine [IVP] IVP 8 mg, administered: 03/26/2017 4:31:00 PM DOXYCYCLINE HYCLATE [PO] PO 100 mg, administered: 03/26/2017 4:31:00 PM Ativan [IM] IM 2 mg, administered: 03/26/2017 5:29:00 PM Ativan [IM] IM 2 mg, administered: 03/26/2017 5:44:00 PM Dilaudid [IVP] IVP 1 mg, administered: 03/26/2017 6:37:00 PM IV NS IV Fluids bolus 0, then 250 mL/hr, administered: 03/26/2017 6:38:00 PM Vancomycin [IVPB] IVPB bolus 0, then 1.5 gm 250 mL/hr, administered: 03/26/2017 8:42:00 PM The following Medications were prescribed to the patient: Morphine sulfate IR 15 mg tab. Take one tab PO. PRN pain every 6 hours as needed. Disp 5 tabs. No refills. Substitution allowed. -- Ramon Taylor Dr. Doxycycline 100 mg: Take 1 capsule orally every 12 hours for 10 days. No refill. -- Ramon Taylor Dr.
--- NOTE | 2017-03-27 13:06 | ED MED RECONCILIATION SUMMARY ---
Patient: DENISE VANG Medication Reconciliation Report [facility] VisitID: [id number] [address] [place] [address] 31y, F Registration Date/Time: 03/26/2017 Weight: 127.0 kg Height/Length: 70 in. BMI: 40.2 ALLERGIES: Sulfa Antibiotics The patient's Home Medications are listed below: CONTINUE TAKING THE FOLLOWING MEDICATIONS: ChlorproMAZINE HCl Injection Gabapentin Oral HydrOXYzine HCl Oral Sertraline HCl Oral The source(s) of the original Home Medication information: Not obtained. The following Medications were given to the patient in the Emergency Department: IV NS IV Fluids bolus 0, then 1000 mL/hr, administered: 03/26/2017 1:46:00 PM Morphine [IVP] IVP 8 mg, administered: 03/26/2017 1:47:00 PM Morphine [IVP] IVP 8 mg, administered: 03/26/2017 4:31:00 PM DOXYCYCLINE HYCLATE [PO] PO 100 mg, administered: 03/26/2017 4:31:00 PM Ativan [IM] IM 2 mg, administered: 03/26/2017 5:29:00 PM Ativan [IM] IM 2 mg, administered: 03/26/2017 5:44:00 PM Dilaudid [IVP] IVP 1 mg, administered: 03/26/2017 6:37:00 PM IV NS IV Fluids bolus 0, then 250 mL/hr, administered: 03/26/2017 6:38:00 PM Vancomycin [IVPB] IVPB bolus 0, then 1.5 gm 250 mL/hr, administered: 03/26/2017 8:42:00 PM The following Medications were prescribed to the patient: Morphine sulfate IR 15 mg tab. Take one tab PO. PRN pain every 6 hours as needed. Disp 5 tabs. No refills. Substitution allowed. -- Ramon Taylor Dr. Doxycycline 100 mg: Take 1 capsule orally every 12 hours for 10 days. No refill. -- Ramon Taylor Dr.
--- NOTE | 2017-03-27 13:06 | ED DISCHARGE INSTRUCTIONS ---
Patient: DENISE VANG General Instructions [facility] VisitID: [id number] [place] [address] 31y, F Registration Date/Time: 03/26/2017 03/26/2017 12:32 BP: 122/62. HR: 101. RR: 18. O2 saturation: 100%. Temp: 98.4 F. Blood pressure normal. Oxygen saturation normal. Cellulitis of the right thigh and left thigh. benzodiazepine withdrawal seizure polysubstance abuse. INSTRUCTIONS Warnings: SEDATIVE MEDICATION: You were given sedative medication during your visit. Do not drive or operate dangerous machinery. CONTROLLED SUBSTANCE WARNINGS. GENERAL WARNINGS: Return or contact your physician immediately if your condition worsens or changes unexpectedly, if not improving as expected, or if other problems arise. Specifically return if pain, vomiting, bleeding, breathing difficulty or fever. Your Current Medications: CONTINUE TAKING THE FOLLOWING MEDICATIONS: ChlorproMAZINE HCl Injection. Gabapentin Oral. HydrOXYzine HCl Oral. Sertraline HCl Oral. Prescription Medications: Doxycycline 100 mg: Take 1 capsule orally every 12 hours for 10 days. No refill. Morphine sulfate IR 15 mg tab. Take one tab PO. PRN pain every 6 hours as needed. Disp 5 tabs. No refills. Substitution allowed. Follow-up: Return to the emergency department as needed. Follow up with your doctor in three days. Reason for referral: recheck today's concerns. Summary of care provided to patient via paper. Screening today revealed the patient's blood pressure to be in the normal range. The patient should follow up with a primary care provider for blood pressure management. Understanding of the discharge instructions verbalized by patient. ADDITIONAL INFORMATION Cellulitis You have an infection of the skin known as cellulitis. This usually starts with a scrape, cut, insect bite, blister or other opening in the skin which becomes infected. This is a serious condition. It must be watched closely to be sure the infection is not spreading. With antibiotic treatment, the size of the red area will gradually shrink in size until the skin returns to normal. This will take 7-10 days. The red area should never increase in size once the antibiotic medicine has been started. Occasionally, an infection will be resistant to one antibiotic and another one will have to be used. Home Care: 1) Limit the use of the affected part, since excess movement can cause the infection to spread. 2) If the infection is on your leg, walk as little as possible during the first few days of the treatment. Keep your leg elevated while sitting. This will reduce swelling. 3) Take all of the antibiotic medicine exactly as directed until it is gone. Be careful not to miss any doses, especially during the first seven days. Follow Up with your doctor or this facility as directed. Check the infected area daily for the warning signs listed below. Get Prompt Medical Attention if any of the following occur: -- Spreading area of redness -- Increasing swelling or pain -- Appearance of pus or drainage -- Fever over 100.4 F (38.0 C) oral, or over 101.4 F (38.6 C) rectal, after two days on antibiotics Doxycycline Monohydrate Oral tablet What is this medicine? DOXYCYCLINE (dox coty SHAI reno) is a tetracycline antibiotic. It kills certain bacteria or stops their growth. It is used to treat many kinds of infections, like dental, skin, respiratory, and urinary tract infections. It also treats acne, Lyme disease, malaria, and certain sexually transmitted infections. How should I use this medicine? Take this medicine by mouth with a full glass of water. Follow the directions on the prescription label. It is best to take this medicine without food, but if it upsets your stomach take it with food. Take your medicine at regular intervals. Do not take your medicine more often than directed. Take all of your medicine as directed even if you think you are better. Do not skip doses or stop your medicine early. Talk to your kiln labourer regarding the use of this medicine in children. Special care may be needed. While this drug may be prescribed for children as young as 8 years old for selected conditions, precautions do apply. What side effects may I notice from receiving this medicine? Side effects that you should report to your doctor or health director medicare sales as soon as possible: allergic reactions like skin rash, itching or hives, swelling of the face, lips, or tongue difficulty breathing fever itching in the rectal or genital area pain on swallowing redness, blistering, peeling or loosening of the skin, including inside the mouth severe stomach pain or cramps unusual bleeding or bruising unusually weak or tired yellowing of the eyes or skin Side effects that usually do not require medical attention (report to your doctor or health director medicare sales if they continue or are bothersome): diarrhea loss of appetite nausea, vomiting What may interact with this medicine? antacids barbiturates control pills bismuth subsalicylate carbamazepine methoxyflurane other antibiotics phenytoin vitamins that contain iron warfarin What if I miss a dose? If you miss a dose, take it as soon as you can. If it is almost time for your next dose, take only that dose. Do not take double or extra doses. Where should I keep my medicine? Keep out of the reach of children. Store at room temperature, below 30 degrees C (86 degrees F). Protect from light. Keep container tightly closed. Throw away any unused medicine after the expiration date. Taking this medicine after the expiration date can make you seriously ill. What should I tell my health care provider before I take this medicine? They need to know if you have any of these conditions: liver disease long exposure to sunlight like working outdoors stomach problems like colitis an unusual or allergic reaction to doxycycline, tetracycline antibiotics, other medicines, foods, dyes, or preservatives or trying to get breast-feeding What should I watch for while using this medicine? Tell your doctor or health director medicare sales if your symptoms do not improve. Do not treat diarrhea with over the counter products. Contact your doctor if you have diarrhea that lasts more than 2 days or if it is severe and watery. Do not take this medicine just before going to bed. It may not dissolve properly when you lay down and can cause pain in your throat. Drink plenty of fluids while taking this medicine to also help reduce irritation in your throat. This medicine can make you more sensitive to the sun. Keep out of the sun. If you cannot avoid being in the sun, wear protective clothing and use sunscreen. Do not use sun lamps or tanning beds/booths. control pills may not work properly while you are taking this medicine. Talk to your doctor about using an extra method of control. If you are being treated for a sexually transmitted infection, avoid sexual contact until you have finished your treatment. Your sexual partner may also need treatment. Avoid antacids, aluminum, calcium, magnesium, and iron products for 4 hours before and 2 hours after taking a dose of this medicine. If you are using this medicine to prevent malaria, you should still protect yourself from contact with mosquitos. Stay in screened-in areas, use mosquito nets, keep your body covered, and use an insect repellent. You have been given the following additional information: Cellulitis Doxycycline Monohydrate Oral tablet (Electronically signed by Ramon Taylor Dr. 03/27/2017 13:05)
--- NOTE | 2017-03-27 13:33 | Progress Note ---
Subjective General Patient seen and examined. Patient since her last seizure has been seizure free. Patient additionally was seen for bilateral cellulitis. Patients cellulitis doesnt require any surgical intervention. Will wait until patient is seizure free and discharge. Constitutional Denies: Fever, Chills, Sweats. Eyes Denies: Pain, Vision Change, Conjunctival Inflammation, Eyelid Inflammation, Redness, Other. ENT Denies: Ear Pain, Ear Discharge, Nose Pain, Nasal Discharge, Nasal Congestion, Mouth Pain, Mouth Swelling, Throat Pain, Throat Swelling, Other. Respiratory Denies: Cough, Dry, SOB w/exertion, Wheezing, Hemoptysis, Pleuritic Pain, Sputum , Other. Cardiovascular Denies: Chest Pain, Palpitations, Orthopnea, PND, Edema, Light-headedness, Other. Gastrointestinal Denies: Nausea, Vomiting, Abdominal Pain, Diarrhea, Constipation, Melena, Hematochezia, Other. Genitourinary Denies: Dysuria, Frequency, Incontinence, Hematuria, Retention, Other. Musculoskeletal Leg Pain. Denies: Neck Pain, Shoulder Pain, Arm Pain, Back Pain, Hand Pain, Foot Pain, Other. Skin Denies: Rash, Lesions, Jaundice, Bruising, Other. Physical Exam Vital Signs / I&Os Vital Signs Date Time Temp Pulse Resp B/P Pulse O2 O2 Flow FiO2 Ox Delivery Rate 03/27 1100 98.1 68 17 157/37 95 Room Air 03/27 0839 Room Air 03/27 0655 97.9 77 18 127/81 99 Nasal 2.0 Cannula 03/27 0517 82 18 99 2.0 03/27 0320 79 17 99 2.0 03/27 0233 98.4 83 18 123/75 100 Nasal 2.0 Cannula 03/27 0111 80 18 100 2.0 03/27 0000 Nasal 2.0 Cannula 03/26 2304 98.8 84 18 122/76 100 Nasal 2.0 Cannula 03/26 2215 85 17 100 2.0 03/26 2144 98.4 89 18 127/78 99 Nasal 2.0 Cannula I&O 03/26 0800 03/26 1600 03/27 0000 Intake Total 0 Output Total 950 Balance -950 General Appearance Alert, Oriented X3, No acute distress HEENT Atraumatic, Moist mucous membranes Lungs Clear to auscultation Neck Supple, No JVD, No masses Cardiovascular Regular rate and rhythm, Normal S1 and S2 Abdomen Normal bowel sounds, Soft, No tenderness, No guarding Extremities No clubbing, No edema, Normal pulses, No tenderness Skin No Breakdown Neurological Normal speech, Normal tone, Cranial nerves intact, Strength 5/5 x4 ext's Psych/Mental Status Mood normal LAB Results Laboratory Tests 03/26 03/26 03/26 03/26 1350 1930 [id number] Chemistry Plasma Magnesium (1.8 - 2.4 mg/dL) 2.2 Lactate Dehydrogenase (117 - 222 U/L) 179 Creatine Kinase (24 - 260 U/L) 49 TSH 3rd Generation (0.34 - 3.74 uIU/mL) 1.644 Prolactin Pending Random Cortisol Pending Toxicology Urine Opiates Screen (NEGATIVE) POSITIVE Urine Methadone Screen (NEGATIVE) NEGATIVE Ur Barbiturates Screen (NEGATIVE) NEGATIVE U Amphetamin/Meth Scrn (NEGATIVE) POSITIVE MDMA (Ecstasy) Screen (NEGATIVE) POSITIVE U Benzodiazepines Scrn (NEGATIVE) POSITIVE Urine Cocaine Screen (NEGATIVE) NEGATIVE U Cannabinoids Screen (NEGATIVE) NEGATIVE Plasma/Serum Ethyl Alc (3 - 10 mg/dL) <3 Urines Urine Test NEGATIVE 03/27 0615 Chemistry Plasma Sodium (136 - 145 mmol/L) 141 Plasma Potassium (3.5 - 5.1 mmol/L) 4.2 Plasma Chloride (98 - 107 mmol/L) 106 CO2 (Enzymatic) (21 - 32 mmol/L) 29 BUN (7 - 18 mg/dL) 8 Creatinine (0.6 - 1.3 mg/dL) 0.6 Est GFR ( Amer) (mL/min) >60 Est GFR (Non-Af Amer) (mL/min) >60 Glucose (70 - 110 mg/dL) 91 Plasma Calcium (8.5 - 10.1 mg/dL) 8.1 Hematology WBC (4.5 - 11.5 K/uL) 5.7 RBC (4.00 - 5.20 M/uL) 4.05 Hgb (12.0 - 16.0 gm/dL) 8.6 Hct (36.0 - 46.0 %) 27.5 MCV (80 - 100 fL) 68 MCH (26 - 34 pg) 21 RDW (11.6 - 14.8 %) 16.6 Neut % (Auto) (50 - 75 %) 40.8 Lymph % (Auto) (25 - 40 %) 44.4 [place] % (Auto) (3 - 14 %) 10.7 Eos % (Auto) (0 - 4 %) 3.6 Baso % (Auto) (0 - 2 %) 0.5 Plt Count, EDTA (150 - 400 K/uL) 352 RBC Morphology (53711 A) 1+ ANISOCYTOSIS PUBS MCHC (31 - 37 g/dL) 31 Microbiology Date/Time Procedure - Status Source Growth 03/26 2012 Blood Culture - CAN BLOOD Cancelled: Cancelled via OE: duplicate 03/26 2012 Blood Culture - CAN BLOOD Cancelled: Cancelled via OE: duplicate 03/26 2005 Superficial Wound Culture - CAN LEG Cancelled: Cancelled via OE: duplicate 03/26 2005 Gram Stain - CAN LEG Cancelled: Cancelled via OE: duplicate 03/26 1935 Superficial Wound Culture - RES LEG 03/26 1935 Gram Stain - RES LEG 03/26 1930 Blood Culture - RECD BLOOD Assessment and Plan Problem List 1. Cellulitis Plan - evidence of bilateral indurated tissue on upper thighs - no jay evidence of cellulitis, or erythema - no evidence of drainage either - will continue with iv antibioitics and if being discharged will continue with oral out patient therapy 2. Seizure Plan - pt had a seizure in the ER secondary to not being on benzodiazapenes - patient has been seizure free since admission - no intracranial or metabolic pathology that would be causing these seizures - will continue with home meds and monitor - seizure precautions 3. Drug abuse Plan - pt has a history of injection drug use, heroin - pts cellulitis secondary to injection drug use - pt claims to have no need to use heroin again - will follow up in [facility] for substance abuse and for cellulitis ton top of her other conditions
[2017-03-27 14:34] VITALS: BP 154/93
--- NOTE | 2017-03-27 15:53 | Provider's Discharge Care Plan ---
Problem, Goal, Plan Problem List 1. Cellulitis Instructions: Take meds as directed, - injection drugs will make this worse 2. Seizure Instructions: Take meds as directed 3. Drug abuse Instructions: - stop taking opioids and injection drugs
[2017-03-27] MEDS ORDERED: AUGMENTIN875 MG PO ×2 (15:55→20:42)
--- NOTE | 2017-03-27 15:59 | Discharge Summary ---
Discharge Summary Report Admit Date 03/26/17 Discharge Date 03/27/17 Admission Diagnosis seizure disorder Discharge Diagnosis seizure disorder with cellulitis Brief History please refer to admission H&P Hospital Course Patient was admitted for seizure disorder and some cellulitis from injection drug use. Patient was seen to be seizure free for 24 hours and it was decided that the patient could be discharged. Additionally wound care and myself examined the patient, and did not see the need for prolongued iv antibiotics or for any surgical intervention. Patient will be treated for celluliitis with oral antibiotics for the next 14 days. Patient will follow up with [facility] for the rest of her medications. General Appearance Alert, Oriented X3, No acute distress HEENT PERRLA, Mucous membran moist/pink Lungs Normal air movement Cardiovascular Normal S1, Normal S2, No murmurs Abdomen Soft, No tenderness Skin No Breakdown Neurological Normal speech, Normal tone, Sensation intact Psych/Mental Status Mood NL Lab/Imaging Laboratory Tests 03/26 Chemistry Plasma Sodium (136 - 145 mmol/L) 141 Plasma Potassium (3.5 - 5.1 mmol/L) 4.2 Plasma Chloride (98 - 107 mmol/L) 106 CO2 (Enzymatic) (21 - 32 mmol/L) 29 BUN (7 - 18 mg/dL) 8 Creatinine (0.6 - 1.3 mg/dL) 0.6 Est GFR ( Amer) (mL/min) >60 Est GFR (Non-Af Amer) (mL/min) >60 Glucose (70 - 110 mg/dL) 91 Plasma Calcium (8.5 - 10.1 mg/dL) 8.1 Plasma Magnesium (1.8 - 2.4 mg/dL) 2.2 Lactate Dehydrogenase (117 - 222 U/L) 179 Creatine Kinase (24 - 260 U/L) 49 TSH 3rd Generation (0.34 - 3.74 uIU/mL) 1.644 Prolactin Pending Random Cortisol Pending Hematology WBC (4.5 - 11.5 K/uL) 5.7 RBC (4.00 - 5.20 M/uL) 4.05 Hgb (12.0 - 16.0 gm/dL) 8.6 Hct (36.0 - 46.0 %) 27.5 MCV (80 - 100 fL) 68 MCH (26 - 34 pg) 21 RDW (11.6 - 14.8 %) 16.6 Neut % (Auto) (50 - 75 %) 40.8 Lymph % (Auto) (25 - 40 %) 44.4 [place] % (Auto) (3 - 14 %) 10.7 Eos % (Auto) (0 - 4 %) 3.6 Baso % (Auto) (0 - 2 %) 0.5 Plt Count, EDTA (150 - 400 K/uL) 352 RBC Morphology (00271 A) 1+ ANISOCYTOSIS PUBS MCHC (31 - 37 g/dL) 31 Toxicology Plasma/Serum Ethyl Alc (3 - 10 mg/dL) <3 Microbiology Date/Time Procedure - Status Source Growth 03/26 2012 Blood Culture - CAN BLOOD Cancelled: Cancelled via OE: duplicate 03/26 2012 Blood Culture - CAN BLOOD Cancelled: Cancelled via OE: duplicate 03/26 2005 Superficial Wound Culture - CAN LEG Cancelled: Cancelled via OE: duplicate 03/26 2005 Gram Stain - CAN LEG Cancelled: Cancelled via OE: duplicate 03/26 1935 Superficial Wound Culture - RES LEG 03/26 1935 Gram Stain - RES LEG 03/26 1930 Blood Culture - RECD BLOOD Discharge Instructions/Meds - complete course of antibiotics - follow up in community clinic - take home medications as prescribed
--- NOTE | 2017-03-27 17:36 | NUR ---
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 A/OX3, C/O PAIN IN BACK AND LEGS AND HAS BEEN EFFECTIVELY MEDICATED, C/O ANXIETY AND EFFECTIVELY MEDICATED FOR THAT. LARGE URINE OUTPUT. CELLULITIS ON HER LEGS HAVE BEEN SEEN AND DRESSED BY [facility]. THE PLAN IS TO D/C PATIENT THIS EVENING.
--- NOTE | 2017-03-27 19:43 | NUR ---
I discussed with the patient their current medications, possible side effects, and answered questions.
[2017-03-27] MEDS ORDERED: OXAYDO7.5 MG PO (20:47)
--- NOTE | 2017-03-27 21:26 | NUR ---
seen by dr panda before discharge. patient is accompanied by her mother and bakari covarrubias on the way down.
--- NOTE | 2017-03-31 16:34 | DIAGNOSTIC IMAGING REPORT ---
PROCEDURE: CT LOWER EXT W/CONTRAST-LEFT INDICATION: ABCESS TECHNIQUE: 125 ml IV with axial scans through the left thigh with coronal and sagittal re-formations. COMPARISON: None. FINDINGS: There is infiltration of the subcutaneous fat lateral to the left hip extending to the knee. There is a 3 x 0.9 cm subcutaneous low density area anterolateral to the proximal (series 3, image 54), without well defined morillo, which could represent a phlegmon. Bones and muscles are unremarkable. Normal appendix, uterus, adnexa and bladder. No pelvic mass or fluid collection. IMPRESSION: 1. Cellulitis of the subcutaneous tissues lateral to the left hip 2. 3 x 0.9 cm subcutaneous phlegmon in the upper left thigh anterolaterally 3. Results discussed with Dr. Taylor
== END 2017-03-27 21:30 | disposition home or self-care (01) ==
LOC: ED SRH 12:24 → ACUTE2 SRH 19:39 → TRANS SRH 19:39 → ACUTE2 SRH 21:15
PROVIDERS: ADMIT Student in an Organized Health Care Education/Training Program
DX: F13.230 Sedative, hypnotic or anxiolytic dependence with withdrawal, uncomplicated (principal); G40.909 Epilepsy, unspecified, not intractable, without status epilepticus; L03.116 Cellulitis of left lower limb; L03.115 Cellulitis of right lower limb; S71.132A Puncture wound without foreign body, left thigh, initial encounter; S71.131A Puncture wound without foreign body, right thigh, initial encounter; W46.0XXA Contact with hypodermic needle, initial encounter; T42.4X6A Underdosing of benzodiazepines, initial encounter; Z91.128 Patient's intentional underdosing of medication regimen for other reason; Y99.8 Other external cause status; F17.210 Nicotine dependence, cigarettes, uncomplicated

== ENCOUNTER 2017-04-02 20:35 | Emergency (ER) | payer OTHER ==
[~2017-04-02 20:35] MED LIST: AUGMENTIN875 MG PO; OXAYDO7.5 MG PO
--- NOTE | 2017-04-02 21:26 | ED NURSING NOTES ---
Clinical Report - Nurses [facility] [address] [place] [address] 04/02/2017 20:35 Patient: DENISE VANG TRIAGE Chief Complaint: (med refill). ( pt not in lobby). --21:25 Melia Escamilla R.N. DISPOSITION / DISCHARGE The patient left the Emergency Department before triage. She left the Emergency Department ambulatory and via private vehicle. ( pt not in lobby upon attempt to bring into ED). --21:26 Melia Escamilla R.N. Locked/Released at 04/02/2017 21:26 by Melia Escamilla R.N.
--- NOTE | 2017-04-02 21:26 | ED MED RECONCILIATION SUMMARY ---
Patient: DENISE VANG Medication Reconciliation Report [facility] VisitID: [id number] [address] [place] [address] 31y, F Registration Date/Time: 04/02/2017 Weight: (not available) Height/Length: (not available) BMI: (not available) ALLERGIES: The patient's Home Medications are listed below: Not obtained. The source(s) of the original Home Medication information: Not obtained. The following Medications were given to the patient in the Emergency Department: None. The following Medications were prescribed to the patient: None.
--- NOTE | 2017-04-02 21:26 | ED NURSING NOTES ---
Clinical Report - Nurses [facility] [address] [place] [address] 04/02/2017 20:35 Patient: DENISE VANG TRIAGE Chief Complaint: (med refill). ( pt not in lobby). --21:25 Melia Escamilla R.N. DISPOSITION / DISCHARGE The patient left the Emergency Department before triage. She left the Emergency Department ambulatory and via private vehicle. ( pt not in lobby upon attempt to bring into ED). --21:26 Melia Escamilla R.N. Locked/Released at 04/02/2017 21:26 by Melia Escamilla R.N.
--- NOTE | 2017-04-02 21:26 | ED MAR SUMMARY ---
..... Medication Administration Record [facility] [address] [place] [id number] Patient: DENISE VANG Visit ID: [id number] 31y, F Weight: (not available) Height/Length: (not available) BMI: (not available) ALLERGIES:
--- NOTE | 2017-04-02 21:26 | ED MAR SUMMARY ---
..... Medication Administration Record [facility] [address] [place], [place] [id number] Patient: DENISE VANG Visit ID: [id number] 31y, F Weight: (not available) Height/Length: (not available) BMI: (not available) ALLERGIES:
--- NOTE | 2017-04-02 21:26 | ED MED RECONCILIATION SUMMARY ---
Patient: DENISE VANG Medication Reconciliation Report [facility] VisitID: [id number] [address] [place] [address] 31y, F Registration Date/Time: 04/02/2017 Weight: (not available) Height/Length: (not available) BMI: (not available) ALLERGIES: The patient's Home Medications are listed below: Not obtained. The source(s) of the original Home Medication information: Not obtained. The following Medications were given to the patient in the Emergency Department: None. The following Medications were prescribed to the patient: None.
== END 2017-04-02 21:26 | disposition left against medical advice (07) ==
LOC: ED SRH 20:35
DX: Z53.21 Procedure and treatment not carried out due to patient leaving prior to being seen by health care provider (principal)